=== PATIENT | male | born 1960 | race Caucasian/White ===

== ENCOUNTER 2019-04-15 16:34 | Emergency (ER) | payer BC ==
[2019-04-15 16:42] VITALS: BP 137/94; PULSE 88; RESP 16; TEMP 98.1
--- NOTE | 2019-04-15 17:23 | ED ---
Extremity Problem HPI - General Chief complaint: Extremity Problem,Nontraumatic Stated complaint: poss DVT left thigh Time Seen by Provider: 04/15/19 16:51 Source: patient Mode of arrival: ambulatory Limitations: no limitations - History of Present Illness Initial comments: Patient is a 58-year-old male, with past medical history of hypertension and DVT , presenting to emergency Department with complaints of left upper leg pain 2 days. Patient states he has history of bilateral lower extremity DVT's. Patient sees a vascular surgeon Dr. Bolden, out of [facility]. Patient states he was just there in January and reports no evidence of DVT although there was narrowing of some pains in his left lower extremity. Patient states he noticed an area of pain on the inside part of his upper left leg as well as some erythema and swelling. Patient does not remember any sort of trauma to the area. Patient denies being on blood thinners. Patient has no pertinent past medical history. Upon arrival to the ER, vital signs are stable. - Related Data Home Medications Medication Instructions Recorded Confirmed Lisinopril [Zestril] 10 mg PO DAILY 09/30/15 10/27/15 Hydrocodone/Acetaminophen [[place] 1 - 2 tab PO Q6HR PRN 10/27/15 10/27/15 5-325] Previous Rx's Medication Instructions Recorded HYDROcodone/APAP 5-325MG [[place] 1 each PO Q6HR PRN #20 tab 10/27/15 5-325] Sulfamethox-Tmp 800-160Mg [Bactrim 1 tab PO Q12HR #20 tab 02/26/19 DS 800-160 mg] Allergies Allergy/AdvReac Type Severity Reaction Status Date / Time peanut Allergy Rash/Hives Verified 04/15/19 18:22 Review of Systems ROS Statement: Those systems with pertinent positive or pertinent negative responses have been documented in the HPI. ROS Other: All systems not noted in ROS Statement are negative. Past Medical History Past Medical History: No Reported History, Deep Vein Thrombosis (DVT) Additional Past Medical History / Comment(s): LT GROIN CYST History of Any Multi-Drug Resistant Organisms: None Reported Additional Past Surgical History / Comment(s): RT INDEX FINGER SURGERY. VARICOSE VEIN STRIPPING BLE Past Anesthesia/Blood Transfusion Reactions: No Reported Reaction Past Psychological History: No Psychological Hx Reported Smoking Status: Never smoker Past Alcohol Use History: Rare Past Drug Use History: None Reported General Exam - General Exam Comments Initial Comments: GENERAL: Well-appearing, well-nourished and in no acute distress. HEAD: Atraumatic, normocephalic. EYES: Pupils equal round and reactive to light, extraocular movements intact, sclera anicteric, conjunctiva are normal. ENT: TMs normal, nares patent, oropharynx clear without exudates. Moist mucous membranes. NECK: Normal range of motion, supple without lymphadenopathy or JVD. LUNGS: Breath sounds clear to auscultation bilaterally and equal. No wheezes rales or rhonchi. HEART: Regular rate and rhythm without murmurs, rubs or gallops. ABDOMEN: Soft, nontender, normoactive bowel sounds. No guarding, no rebound. No masses appreciated. : Deferred EXTREMITIES: Patient has pain with palpation of the medial aspect of the left upper leg, there is in large area of erythema present. Full range of motion of bilateral lower extremities. Neurovascular intact bilateral lower extremities. No clubbing or cyanosis. NEUROLOGICAL: Cranial nerves II through XII grossly intact. Normal speech, normal gait. PSYCH: Normal mood, normal affect. SKIN: Warm, Dry, normal turgor, no rashes or lesions noted. Limitations: no limitations Course Vital Signs 04/15/19 16:41 Temperature 98.1 F Pulse Rate 88 Respiratory 16 Rate Blood Pressure 137/94 O2 Sat by Pulse 98 Oximetry Medical Decision Making - Medical Decision Making Patient is a 58-year-old male presenting with upper left leg pain 2 days. Patient has history of DVTs. Ultrasound of the left lower extremity shows superf icial vein thrombosis along the saphenous vein. No evidence of DVTs. Patient's vital signs are stable, afebrile. Patient will be discharged home. Patient will use warm compresses, NSAIDs for symptom relief. Patient will follow up with his vascular doctor next week. Patient is in agreement with this plan of care. Return parameters were discussed with the patient he verbalizes understanding. Case discussed with Dr. Kaplan. Disposition Clinical Impression: Superficial thrombophlebitis of left leg Disposition: HOME SELF-CARE Condition: Stable Instructions (If sedation given, give patient instructions): Superficial Thrombophlebitis (ED) Additional Instructions: Please return to the Emergency Department if symptoms worsen or any other concerns. Follow-up with vascular doctor as discussed. Use warm compresses and Motrin for relief of symptoms. Is patient prescribed a controlled substance at d/c from ED?: No Referrals: Adrian Candelaria DO [Primary Care Provider] - 1-2 days
--- NOTE | 2019-04-15 18:17 | US ---
EXAMINATION TYPE: US venous doppler duplex LE LT DATE OF EXAM: 04/15/2019 6:06 PM COMPARISON: US CLINICAL HISTORY: pain, erythema. Redness and pain left medial thigh, H/O DVT SIDE PERFORMED: Left TECHNIQUE: The lower extremity deep venous system is examined utilizing real time linear array sonog eliza with graded compression, doppler sonography and color-flow sonography. VESSELS IMAGED: External Iliac Vein (EIV) Common Femoral Vein Deep Femoral Vein Greater Saphenous Vein * Femoral Vein Popliteal Vein Small Saphenous Vein * Proximal Calf Veins (* superficial vessels) Left Leg: Negative for DVT, +for SVT within left GSV at mid thigh where pt has redness and pain/ SVT also within small saph vein, does not appear to extend within popliteal vine IMPRESSION: There is some superficial vein thrombosis in the long saphenous vein. No evidence of deep venous thrombosis.
== END 2019-04-15 18:48 | disposition home or self-care (01) ==
LOC: EC 16:34
DX: I80.02 Phlebitis and thrombophlebitis of superficial vessels of left lower extremity (principal); I10 Essential (primary) hypertension; Z79.899 Other long term (current) drug therapy; Z91.010 Allergy to peanuts; Z86.718 Personal history of other venous thrombosis and embolism
CPT/HCPCS: 99283

== ENCOUNTER 2022-01-08 09:22 | Day surgery (SDC) | payer BC ==
[2022-01-06 14:22] VITALS: BMI 30.8
[~2022-01-08 09:22] MED LIST: LACTATED RINGERS 1,000 ML IV SCH
[2022-01-08 10:03] VITALS: TEMP 97.3
[2022-01-08] MEDS ORDERED: LIDOCAINE 2% INJ 20 MG/ML (2 ML VIAL) ONE (10:41)
[2022-01-08] MEDS ORDERED: PROPOFOL 10 MG/ML 20 ML VIAL IV ONE (10:41)
--- NOTE | 2022-01-08 10:59 | P.PCN ---
Date of Procedure: 01/08/22 Procedure(s) Performed: BRIEF HISTORY: Patient is a 61-year-old pleasant white male scheduled for an elective colonoscopy as a part of gaining for colon cancer. PROCEDURE PERFORMED: Colonoscopy with biopsy. PREOPERATIVE DIAGNOSIS: Screening for colon cancer. IV sedation per Anesthesia. PROCEDURE: After informed consent was obtained, the patient, was brought into the endoscopy unit. IV sedation was administered by Anesthesia under continuous monitoring. Digital rectal examination was normal. Initially the Olympus CF-160 flexible video colonoscope was then inserted in the rectum, gradually advanced into the cecum without any difficulty. Careful examination was performed as the scope was gradually being withdrawn. Ileocecal valve and the appendiceal orifice were visualized and appeared normal. Prep was excellent. Mucosa of the cecum, ascending colon, transverse colon, descending colon, sigmoid colon, we normal. In the sigmoid: There was a 3-4 mm sessile polyp that was removed by cold biopsy. The rectum appeared normal. Retroflexion was performed in the rectum and no lesions were seen. The patient tolerated the procedure well. IMPRESSION: 3-4 mm sessile sigmoid: Polyp status post cold biopsy Rest of the colon appeared normal RECOMMENDATIONS: Findings of this examination were discussed with the patient as well as his family.. is advised to follow with the biopsy results. If the biopsy is adenoma he can have a repeat colonoscopy in 5 years.
[2022-01-08 12:15] VITALS: BP 116/78; PULSE 67; RESP 18
== END 2022-01-08 11:50 | disposition home or self-care (01) ==
LOC: ORWHC2ENDO 09:22
PROVIDERS: ATTEND Internal Medicine Gastroenterology
DX: Z12.11 Encounter for screening for malignant neoplasm of colon (principal); D12.5 Benign neoplasm of sigmoid colon; Z80.0 Family history of malignant neoplasm of digestive organs; I10 Essential (primary) hypertension; Z79.899 Other long term (current) drug therapy; Z91.010 Allergy to peanuts
CPT/HCPCS: 88305; 45380; J2704; J2001

== ENCOUNTER 2022-11-18 10:26 | Emergency (ER) | payer BC ==
--- NOTE | 2022-11-18 11:29 | US ---
EXAMINATION TYPE: US venous doppler duplex LE DATE OF EXAM: 11/18/2022 10:54 AM COMPARISON: US 2018 CLINICAL INDICATION: Male, 62 years old with history of leg pain; Left calf pain SIDE PERFORMED: Left TECHNIQUE: The lower extremity deep venous system is examined utilizing real time linear array sonog eliza with graded compression, doppler sonography and color-flow sonography. FINDINGS: VESSELS IMAGED: Common Femoral Vein Deep Femoral Vein Greater Saphenous Vein * Femoral Vein Popliteal Vein Small Saphenous Vein * Proximal Calf Veins (* superficial vessels) Left Leg: Appears negative for DVT Thrombus seen within superficial small saphenous vein IMPRESSION: 1. No evidence for DVT within the left lower extremity imaged from the groin to the upper calf. 2. However, we note the exam POSITIVE FOR SVT involving the small saphenous vein.
--- NOTE | 2022-11-18 12:06 | ED ---
General Adult HPI - General Chief complaint: Extremity Problem,Nontraumatic Stated complaint: poss DVT - lt leg Time Seen by Provider: 11/18/22 10:38 Source: patient, RN notes reviewed Mode of arrival: ambulatory Limitations: no limitations - History of Present Illness Initial comments: 62-year-old male with a past medical history significant for cholecystectomy excellently 10 days ago reports to the emergency department with a chief complaint of left leg pain. Patient reports worsening pain with movement. He is concerned for a blood clot. He denies any numbness or tingling in the extremity. He denies Any current anticoagulant use. He does report recent surgery. He has not taken anything for his symptoms. He denies any fever, fatigue, chest pain, shortness of breath, cough, palpitations. - Related Data Home Medications Medication Instructions Recorded Confirmed lisinopriL [Zestril] 10 mg PO DAILY 09/30/15 01/08/22 Previous Rx's Medication Instructions Recorded Apixaban [Eliquis] 5 mg PO DIRECTED #74 tablet 11/18/22 Allergies Allergy/AdvReac Type Severity Reaction Status Date / Time peanut Allergy Rash/Hives Verified 11/18/22 10:33 Review of Systems ROS Statement: Those systems with pertinent positive or pertinent negative responses have been documented in the HPI. ROS Other: All systems not noted in ROS Statement are negative. Past Medical History Past Medical History: Deep Vein Thrombosis (DVT), Hypertension Additional Past Medical History / Comment(s): DVT LT THIGH. HX BROKEN BACK R/T FALL 6 YEARS AGO History of Any Multi-Drug Resistant Organisms: None Reported Past Surgical History: Cholecystectomy Additional Past Surgical History / Comment(s): RT INDEX FINGER SURGERY. VARICOSE VEIN STRIPPING BLE. COLONOSCOPY. CERVICAL FUSION Past Anesthesia/Blood Transfusion Reactions: No Reported Reaction Past Psychological History: No Psychological Hx Reported Smoking Status: Never smoker - Past Family History Mother Family Medical History: No Reported History Father Family Medical History: Cancer General Exam - General Exam Comments Initial Comments: General: Alert, in no acute distress Head: atraumatic normocephalic. Eyes PERRL, EOMI intact, mucous membranes moist Respiratory: Lungs clear to auscultation bilaterally Cardiovascular: Heart rate regular rate and rhythm Abdominal: Soft without guarding or rebound, surgical scars that appear well healed Extremities: Normal inspection with full range of motion and normal capillary refill, left calf with positive Homans sign 2+ DP/PT pulses. Distal NVI remains intact for range of motion Neuroogic: alert and oriented 3, CN II-XII intact, able to ambulate with steady gait Skin: warm dry and intact with normal color Limitations: no limitations Course Vital Signs 11/18/22 11/18/22 10:30 12:54 Temperature 98 F 98.3 F Pulse Rate 82 73 Respiratory 18 16 Rate Blood Pressure 126/82 146/97 O2 Sat by Pulse 100 96 Oximetry Medical Decision Making - Medical Decision Making Was pt. sent in by a medical professional or institution (TAMARA Gaytan, [employer], urgent care, hospital, or jail...) When possible be specific @ -[No] Did you speak to anyone other than the patient for history (EMS, parent, family, police, friend...)? What history was obtained from this source @ -[No] Did you review nursing and triage notes (agree or disagree)? Why? @ -[I reviewed and agree with nursing and triage notes] Were old charts reviewed (outside hosp., previous admission, EMS record, old EKG, old radiological studies, urgent care reports/EKG's, jail records)? Report findings @ -[No old charts were reviewed] Differential Diagnosis (chest pain, altered mental status, abdominal pain women, abdominal pain men, vaginal bleeding, weakness, fever, dyspnea, syncope, headache, dizziness, GI bleed, back pain, seizure, CVA, palpatations, mental health, musculoskeletal)? @ -[not applicable] EKG interpreted by me (3pts min.). @ -[As above] X-rays interpreted by me (1pt min.). @ -[None done] CT interpreted by me (1pt min.). @ -[None done] U/S interpreted by me (1pt. min.). @ -[None done] What testing was considered but not performed or refused? (CT, X-rays, U/S, labs)? Why? @ -[None] What meds were considered but not given or refused? Why? @ -[None] Did you discuss the management of the patient with other professionals (professionals i.e. TAMARA Gaytan, [employer], lab, RT, psych nurse, rn social services, administrative operations coordinator, teacher, special weapons and tactics officer, case work aide)? Give summary @ -[No] Was smoking cessation discussed for >3mins.? @ -[No] Was critical care preformed (if so, how long)? @ -[No] Were there social determinants of health that impacted care today? How? (Homelessness, low income, unemployed, alcoholism, drug addiction, transportation, low edu. Level, literacy, decrease access to med. care, usp, rehab)? @ -[No] Was there de-escalation of care discussed even if they declined (Discuss DNR or withdrawal of care, Hospice)? DNR status @ -[No] What co-morbidities impacted this encounter? (DM, HTN, Smoking, COPD, CAD, Cancer, CVA, ARF, Chemo, Hep., AIDS, mental health diagnosis, sleep apnea, morbid obesity)? @ -[None] Was patient admitted / discharged? Hospital course, mention meds given and route, prescriptions, significant lab abnormalities, going to OR and other pertinent info. @ -[Discharged. This is a 62-year-old male presents the emergency department with leg pain. Patient had a thorough history and physical exam performed while in the ED. Physical exam is essentially unremarkable. Heart rate regular rate and rhythm, lung sounds clear to auscultation bilaterally abdomen is soft and nontender. Left lower extremity with positive Homans sign however 2+ DT and PT/PT pulses distal NVI. Ultrasound Doppler negative for DVT however there is a superficial thrombus of small saphenous vein . He should was started on Eliquis. He was instructed to follow-up with Dr. Glass within 1 week. I discussed the results in detail with the patient verbalized understanding. Return precautions were discussed at length. Discharged in stable condition. Case discussed with GRISELDA Lopez who agrees with plan of care Undiagnosed new problem with uncertain prognosis? @ -[No] Drug Therapy requiring intensive monitoring for toxicity (Heparin, Nitro, Insulin, Cardizem)? @ -[No] Were any procedures done? @ -[No] Diagnosis/symptom? @Leg pain - SVT of small saphenous vein Acute, or Chronic, or Acute on Chronic? @ -Acute Uncomplicated (without systemic symptoms) or Complicated (systemic symptoms)? @ uncomplicated Side effects of treatment? @ -[No] Exacerbation, Progression, or Severe Exacerbation? @ -[No] Poses a threat to life or bodily function? How? (Chest pain, [place], [place], pneumonia, PE, COPD, DKA, ARF, appy, cholecystitis, CVA, Diverticulitis, Homicidal, Suicidal, threat to staff... and all critical care pts) @ -low likleihood Disposition Clinical Impression: Superficial thrombosis of left lower extremity Disposition: HOME SELF-CARE Condition: Stable Additional Instructions: start taking Eliquis today Please follow-up with vascular surgeon sometime this week Please return to the nearest emergency department symptoms worsen or persist Prescriptions: Apixaban [Eliquis] 5 mg PO DIRECTED #74 tablet Is patient prescribed a controlled substance at d/c from ED?: No Referrals: Adrian Candelaria DO [Primary Care Provider] - 1-2 days Carlos Glass DO [Doctor of Osteopathic Medicine] - 1-2 days Time of Disposition: 12:05
[2022-11-18 12:56] VITALS: BP 146/97; PULSE 73; RESP 16; TEMP 98.3
[2022-11-18] MEDS ORDERED: APIXABAN 5 MG TAB PO SCH (21:00)
== END 2022-11-18 12:55 | disposition home or self-care (01) ==
LOC: EC 10:26
DX: I82.812 Embolism and thrombosis of superficial veins of left lower extremity (principal); I47.1 Supraventricular tachycardia; I10 Essential (primary) hypertension; Z91.018 Allergy to other foods
CPT/HCPCS: 99283